=== PATIENT | male | born 2000 | race Caucasian/White ===

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

== ENCOUNTER 2022-10-01 06:57 | Day surgery (SDC) | payer MEDICAID ==
[2022-10-01] MEDS ORDERED: Midazolam 1 MG/ML 2 ML SDV ONE (07:17)
[2022-10-01] MEDS ORDERED: Propofol 200 MG/20 ML SDV ONE (07:17)
[2022-10-01] MEDS ORDERED: fentaNYL 100 MCG/2 ML SDV ONE (07:17)
[2022-10-01] MEDS ORDERED: Lactated Ringers 1,000 ML IV SCH (07:30)
[2022-10-01 09:15] VITALS: BP 98/61; PULSE 55
== END 2022-10-01 09:36 | disposition home or self-care (01) ==
LOC: JP.SDS 06:57
PROVIDERS: ATTEND Student in an Organized Health Care Education/Training Program
DX: K21.00 Gastro-esophageal reflux disease with esophagitis, without bleeding (principal); K29.50 Unspecified chronic gastritis without bleeding; K22.89 Other specified disease of esophagus; Z87.891 Personal history of nicotine dependence; Z91.030 Bee allergy status
CPT/HCPCS: 43239; 88305; J2250; J2704; J3010; J7120

== ENCOUNTER 2023-11-21 20:08 | Emergency (ER) | payer MEDICAID ==
[2023-11-21 20:28] VITALS: BP 146/83; PULSE 96
[2023-11-21] MEDS: Bacitracin Oint 1 GM U/D Packet TOP ONE (21:38)
[2023-11-22] MEDS ORDERED: Bacitracin Oint 28.35 GM Tube TOP SCH (09:00)
== END 2023-11-21 21:38 | disposition home or self-care (01) ==
LOC: JP.ED 20:08
DX: T23.202A Burn of second degree of left hand, unspecified site, initial encounter (principal); T31.0 Burns involving less than 10% of body surface; F17.210 Nicotine dependence, cigarettes, uncomplicated; Z79.899 Other long term (current) drug therapy; Z91.030 Bee allergy status
CPT/HCPCS: 16020; 99283-25